=== PATIENT | female | born 1995 | race Two or more races ===

== ENCOUNTER 2017-06-17 14:46 | Emergency (ER) | payer SELFPAY ==
[~2017-06-17] VITALS: Ht 160 cm; Wt 88.9 kg
[2017-06-17 14:56] VITALS: BP 142/79
== END 2017-06-17 16:03 | disposition home or self-care (01) ==
LOC: ER 14:46
DX: J02.9 Acute pharyngitis, unspecified (principal); J45.909 Unspecified asthma, uncomplicated